=== PATIENT | male | born 1970 | race Caucasian/White ===

== ENCOUNTER 2018-09-11 10:05 | Day surgery (SDC) | payer BC ==
[2018-09-11] VITALS (14 sets, daily range): BP systolic 112–159; BP diastolic 59–98
[~2018-09-11] VITALS: Ht 185.4 cm; Wt 119.9 kg
[2018-09-11] MEDS ORDERED: nitroGLYCERIN 0.4mg SUBLingual tab SL PRN (10:35)
[2018-09-11] MEDS ORDERED: LORazepam 0.5 MG tablet PO PRN (10:35)
[2018-09-11] MEDS ORDERED: diphenhydrAMINE 25mg capsule PO PRN (10:35)
[2018-09-11] MEDS ORDERED: ASPI81TA52 PO (10:39)
[2018-09-11] MEDS ORDERED: VALS160T2 PO (10:39)
[2018-09-11] MEDS ORDERED: ALBU8.5H8 INH (10:39)
[2018-09-11] MEDS: normal saline 1000ml 1,000 ML IV SCH ×2 (11:30→17:06)
[2018-09-11] MEDS ORDERED: iohexol 350 MG/ML 50ML vial IV ONE (11:56)
[2018-09-11] MEDS ORDERED: iohexol 350MG/ML 100ml bottle IV ONE (11:56)
[2018-09-11] MEDS ORDERED: midazolam 2 mg/2 ml injection ONE ×2 (11:56→12:28)
[2018-09-11] MEDS ORDERED: LIDOcaine 1% 30ml preserv. free vial ONE (11:56)
[2018-09-11] MEDS ORDERED: proCHLORperazine 10 MG/2 ml inj ONE (12:19)
[2018-09-11] MEDS ORDERED: fentaNYL/PF 50MCG/1 ML 2ML syringe ONE (12:34)
[2018-09-11] MEDS ORDERED: HYDROcodone/acetaminophen 5mg/325mg tablet PO PRN (13:25)
[2018-09-11] MEDS ORDERED: ondansetron/PF 4mg/2ml inj IV PRN (13:25)
[2018-09-11] MEDS ORDERED: HYDROcodone/acetaminophen 10/325mg tab PO PRN (13:25)
[2018-09-11] MEDS ORDERED: proCHLORperazine 10 MG/2 ml inj IV PRN (13:25)
[2018-09-11] MEDS ORDERED: OXAZEpam 15mg capsule PO PRN (13:25)
[2018-09-11] MEDS ORDERED: losartan 50mg tablet PO SCH (17:00)
== END 2018-09-11 18:50 | disposition home or self-care (01) ==
LOC: SSTAY O 10:05
PROVIDERS: ATTEND Internal Medicine Cardiovascular Disease
DX: I25.10 Atherosclerotic heart disease of native coronary artery without angina pectoris (principal); I10 Essential (primary) hypertension; G47.33 Obstructive sleep apnea (adult) (pediatric); J45.998 Other asthma; Z72.89 Other problems related to lifestyle; Z79.82 Long term (current) use of aspirin; Z98.890 Other specified postprocedural states; Z79.899 Other long term (current) drug therapy
CPT/HCPCS: 93458; 99152; 99153; A6257; C1760; J0780; J1644; J2250; J3010; J3490; J7030; Q0163; Q9967; A4620; C1769